=== PATIENT | male | born 1990 | race Caucasian/White ===

== ENCOUNTER 2021-05-25 20:43 | Emergency (ER) | payer SELFPAY ==
[2021-05-25] MEDS ORDERED: Lidocaine 1% (PF) 30 ML VIAL ONE (21:04)
[2021-05-25] MEDS ORDERED: Bupivacaine 0.5% 10 ML VIAL ONE (21:04)
[2021-05-25] MEDS ORDERED: Clindamycin 150 MG CAP ONE (22:51)
== END 2021-05-25 22:57 | disposition home or self-care (01) ==
LOC: ERS 20:43
DX: L03.011 Cellulitis of right finger (principal); F17.290 Nicotine dependence, other tobacco product, uncomplicated
CPT/HCPCS: 26010; J2001; J3490